=== PATIENT | male | born 1950 | race Caucasian/White ===

== ENCOUNTER 2016-07-20 16:54 | Observation (INO) | payer BC, OTHER ==
[2016-07-20 17:24] LABS: % IMMATURE GRANULYOCYTES 0.3 % (0.0-1.1); ABSOLUTE IMMATURE GRANULOCYTES 0.02 10^3/uL (0.00-0.10); ADD DIFF? NO; ADD MORPH? NO; ADD SCAN? NO; ATYPICAL LYMPHOCYTE FLAG 10 (0-99); FRAGMENT RBC FLAG 0 (0-99); HEMATOCRIT 42.6 % (40.0-51.0); HEMOGLOBIN 14.9 g/dL (13.7-17.5); LEFT SHIFT FLG 0 (0-99); LIPEMIA HEMOLYSIS FLAG 90 (0-99); MEAN CELL HEMOGLOBIN 30.7 pg (27.9-34.1); MEAN CELL VOLUME 87.8 fL (81.5-99.8); MEAN PLATELET VOLUME 9.6 fL (8.7-11.7); PLATELET CLUMPS FLAG 0 (0-99); PLATELET COUNT 204 10^3/uL (150-400); RED BLOOD CELL COUNT 4.85 10^6/uL (4.40-6.38); RED CELL DISTRIBUTION WIDTH 12.7 % (11.5-15.2)
--- NOTE | 2016-07-20 17:25 | UCPHY ---
H & P Patient Type: Established HPI/ROS: HPI Forgetfulness. 66-year-old male by private vehicle with his . His reports that they were having sexual intercourse at 4:30 p.m.. After this his stated that the patient could not remember what they did earlier this morning. She then asked him questions such as [place] tissue work and he could not remember this. He has no complaint of chest pain or palpitations. No headache. He denies any focal loss of sensation or weakness in his extremities. He has no other complaints and his states that his memory has now improved. ROS: Constitutional: No fever, no chills. As above. Eyes: No discharge. No changes in vision. ENT: No sore throat. No nasal congestion or rhinorrhea. Respiratory: No cough. No shortness of breath. Cardiac: No chest pain, no palpitations. Gastrointestinal: No abdominal pain, no vomiting, no diarrhea. Genitourinary: No hematuria. No dysuria or increased frequency with urination. Musculoskeletal: No back pain. No neck pain. No myalgias or arthralgias. Skin: No rashes. Neurological: No headache. No focal weakness or altered sensation. Past medical history: No significant past medical history. He is not on any prescription medications. Social history: Nonsmoker. Here with his . No alcohol. Physical Exam: General Appearance: Alert, no distress. This patient is slow to respond to questioning but answers appropriately. This patient appears well-hydrated and well-nourished. Eyes: Pupils equal and round no pallor or injection. No lid edema, erythema or injection. No photophobia. No nystagmus. Respiratory: There are no retractions, lungs are clear to auscultation with good air movement bilaterally. Cardiovascular: Regular rate and rhythm. No murmur. Gastrointestinal: Abdomen is soft and nontender, no masses, bowel sounds normal. No focal tenderness at McBurney's point. No Peters sign. Neurological: Motor sensory function is normal. Cranial nerves are normal. Cerebellar function normal. Gait is normal. Skin: Warm and dry, no rashes. Musculoskeletal: Neck is supple and nontender. No pain on flexion of the neck. Extremities are symmetrical. All joints range without pain or impingement. Psychiatric: No agitation. No depression. Database: EKG: Imaging: Procedures: Emergency department course: IV established in triage at urgent care. After my evaluation, I explained to him and his that I felt he should go to the emergency department for a more detailed workup which will include an MRI of his brain as well as carotid artery Dopplers. His memory has been improving since coming to the urgent care. He does not represent a stroke alert and is not a TPA candidate at this time. His and him are in agreement to go to the emergency department. She will take him immediately. 5:20 p.m., I spoke with on-duty emergency physician Dr. Lunsford at [facility] emergency department. He is expecting the patient. I have placed orders for TIA workup. Patient left Urgent Care with his in stable and improved condition. Differential Diagnosis: The differential diagnosis on this patient includes but is not limited to transient global amnesia, TIA, CVA, toxic metabolic issue. This represents a partial list of diagnoses considered. These considerations are based on history , physical exam, past history, reassessment and diagnostic testing. Smoking Status: Never smoked Constitutional: Initial Vital Signs Temperature (C) 37.2 C 07/20/16 17:00 Heart Rate 78 07/20/16 17:00 Respiratory Rate 16 07/20/16 17:00 Blood Pressure 158/87 H 07/20/16 17:00 O2 Sat (%) 94 07/20/16 17:00 O2 Delivery Mode Room Air Allergies/Adverse Reactions: Penicillins Allergy (Mild, Verified 07/20/16 17:09) Hives Home Medications: Medication Instructions Recorded Acetaminophen [Tylenol ES 500 mg 1,000 mg PO BID PRN 07/20/16 (*)] Ascorbic Acid [Vitamin C 500 mg 500 mg PO DAILY 07/20/16 (*)] Cholecalciferol Vit D3 [Vitamin D3] 400 units PO DAILY 07/20/16 Fexofenadine HCl [Sherley Allergy] 60 mg PO DAILY 07/20/16 Gluc Garcia/Chondro Garcia A/Vit C/Mn 1 each PO TID 07/20/16 [Glucosamine 1,500 Complex Cap] Herbals/Supplements -Info Only 1 ea PO DAILY 07/20/16 Ibuprofen [Motrin (*)] 600 mg PO BID PRN 07/20/16 [place]-3 Fatty Acids [Fish Oil 1000 1,000 mg PO BID@18 07/20/16 mg (*)] Omeprazole [Prilosec 20 mg] 20 mg PO DAILY 07/20/16 Sodium Cl Nasal [[place] (*)] 1 spray EACHNARE DAILY PRN 07/20/16 Tears/Dextran 70/Hypromellose 1 drop EACHEYE Q2 PRN 07/20/16 [Natural Balance Tears (*)] Vitamin B Complex [B Complex] 1 each PO DAILY 07/20/16 Zinc Gluconate [Zinc Chelated 50mg 50 mg PO DAILY8 07/20/16 (*)] Medical Decision Making - Data Points Laboratory Results: Laboratory Results 07/20/16 17:00 07/20/16 17:00 Medications Given: Discontinued Medications Acetaminophen (Tylenol) 650 mg PO Q4HRS PRN PRN Reason: Pain, Mild/Fever, Can Take PO Stop: 01/16/17 20:09 Last Admin: 07/21/16 08:07 Dose: 650 mg Cetirizine HCl (Zyrtec) 10 mg PO DAILY CHIP Stop: 01/17/17 08:59 Last Admin: 07/21/16 08:08 Dose: Not Given Miscellaneous Medication (Gluc Garcia/Chondro Garcia A/Vit C/Mn [Glucosamine 1,500 Complex Cap]) 1 each PO TID CHIP Stop: 01/16/17 21:59 Last Admin: 07/21/16 12:10 Dose: Not Given Pantoprazole Sodium (Protonix) 40 mg PO DAILY CHIP Stop: 01/17/17 08:59 Last Admin: 07/21/16 08:08 Dose: 40 mg Vitamin B Complex (Vitamin B Complex) 1 ea PO DAILY CHIP Stop: 01/17/17 08:59 Last Admin: 07/21/16 08:08 Dose: 1 ea Departure - Departure Disposition: [facility] Inpatient Acute Clinical Impression: Acute memory impairment Condition: Good - PQRS PQRS Measurement: Not applicable.
[2016-07-20 17:30] LABS: ANION GAP 14 mEq/L (8-16); CARBON DIOXIDE 24 mEq/l (22-31); CHLORIDE 104 mEq/L (97-110); CREATININE 0.7 mg/dL (0.7-1.3); GLOMERULAR FILTRATION RATE > 60; GLUCOSE 114 mg/dL (70-100); POTASSIUM 3.8 mEq/L (3.5-5.2); SODIUM 142 mEq/L (134-144)
--- NOTE | 2016-07-20 19:23 | EDPHY ---
H & P Time Seen by Provider: 07/20/16 18:21 HPI/ROS: CHIEF COMPLAINT: Memory loss HISTORY OF PRESENT ILLNESS: The patient is a 66-year-old male who presents to the emergency department as a transfer from [facility]. At 4:30 a.m. today he was having sexual intercourse when he developed forgetfulness. He is having difficulty remembering what happened earlier in the day. He was seen at urgent care. He was found to have no focal neurologic deficits other than his memory loss. He was sent to [facility] for MRI and ultrasound imaging. In the emergency department the patient has no specific complaints. However, the patient's states he still is having forgetfulness. Patient has difficulty recalling events earlier today were going to urgent care. Patient has no headache or neck pain. No recent trauma or fall. No weakness or numbness. No recent illnesses. The patient has not been to a doctor in 10-15 years. REVIEW OF SYSTEMS: My complete review of systems is negative except as mentioned in the HPI. Past Medical/Surgical History: Denies Past surgical history: Noncontributory Social history: The patient is . Does not use alcohol. He does not smoke Smoking Status: Never smoked Physical Exam: GENERAL: Well-appearing, in no acute distress, alert. HEENT: Eyes normal to inspection, normal pharynx, no signs of dehydration. NECK: No thyromegaly, no lymphadenopathy, supple. RESPIRATORY: Clear to auscultation bilaterally, no rales, rhonchi or wheezing. CVS: Regular rate and rhythm, no rubs, murmurs, or gallops. ABDOMEN: Soft, nontender, nondistended, no organomegaly. BACK: Normal to inspection, no CVA tenderness. SKIN: Normal color, no rash, warm, dry. No pallor. EXTREMITIES: No pedal edema, no calf tenderness, no Homans sign or cords, no joint swelling. NEURO/PSYCH: Higher functions: Alert and Oriented x2. The patient has difficulty with short -term memory. He is able to name 1 of 3 short-term memory items. Normal speech and cognition. Normal mood and affect. Cranial nerves: Normal as tested. Cerebellar: Normal as tested. Good finger to nose, good [id number], normal gait. Peripheral exam: Normal motor exam. Normal sensation. Normal reflexes. Constitutional: Initial Vital Signs Temperature (C) 37.2 C 07/20/16 17:00 Heart Rate 78 07/20/16 17:00 Respiratory Rate 16 07/20/16 17:00 Blood Pressure 158/87 H 07/20/16 17:00 O2 Sat (%) 94 07/20/16 17:00 O2 Delivery Mode Room Air Allergies/Adverse Reactions: Penicillins Allergy (Mild, Verified 07/20/16 17:09) Hives Home Medications: Medication Instructions Recorded Miscellaneous Medical Supply [NO 1 ea MISC AD 11/12/12 HOME MEDS] Medical Decision Making ED Course/Re-evaluation: In the emergency department I discussed the plan with the patient and his . On my exam he had no focal neurologic deficits other than his memory loss. Carotid ultrasound. Please refer the dictated report by Dr. Chilo Sanchez. The patient has no acute occlusion noted. 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 MRI of the brain: Please refer the dictated report by Dr. Chilo Sanchez. No acute disease noted. I paged Neurology discussed the case. I discussed case with Dr. Damon from Neurology. He recommended admission for observation. I subsequently spoke with Dr. Powers who will admit the patient. Differential Diagnosis: My differential includes but is not limited to transient global amnesia, amnesia , ischemic CVA, hemorrhagic CVA, dissection, aneurysm, electrolyte abnormality, sugar abnormality - Data Points Laboratory Results: Laboratory Results 07/20/16 17:00 07/20/16 17:00 07/20/16 07/20/16 17:00 17:00 WBC 7.98 10^3/uL 10^3/uL (3.80-9.50) RBC 4.85 10^6/uL 10^6/uL (4.40-6.38) Hgb 14.9 g/dL g/dL (13.7-17.5) Hct 42.6 % % (40.0-51.0) MCV 87.8 fL fL (81.5-99.8) MCH 30.7 pg pg (27.9-34.1) MCHC 35.0 g/dL g/dL (32.4-36.7) RDW 12.7 % % (11.5-15.2) Plt Count 204 10^3/uL 10^3/uL (150-400) MPV 9.6 fL fL (8.7-11.7) Neut % (Auto) 58.0 % % (39.3-74.2) Lymph % (Auto) 32.6 % % (15.0-45.0) [place] % (Auto) 6.6 % % (4.5-13.0) Eos % (Auto) 2.1 % % (0.6-7.6) Baso % (Auto) 0.4 % % (0.3-1.7) Nucleat RBC Rel Count 0.0 % % (0.0-0.2) Absolute Neuts (auto) 4.63 10^3/uL 10^3/uL (1.70-6.50) Absolute Lymphs (auto) 2.60 10^3/uL 10^3/uL (1.00-3.00) Absolute Monos (auto) 0.53 10^3/uL 10^3/uL (0.30-0.80) Absolute Eos (auto) 0.17 10^3/uL 10^3/uL (0.03-0.40) Absolute Basos (auto) 0.03 10^3/uL 10^3/uL (0.02-0.10) Absolute Nucleated RBC 0.00 10^3/uL 10^3/uL (0-0.01) Immature Gran % 0.3 % % (0.0-1.1) Immature Gran # 0.02 10^3/uL 10^3/uL (0.00-0.10) Sodium 142 mEq/L mEq/L (134-144) Potassium 3.8 mEq/L mEq/L (3.5-5.2) Chloride 104 mEq/L mEq/L (97-110) Carbon Dioxide 24 mEq/l mEq/l (22-31) Anion Gap 14 mEq/L mEq/L (8-16) BUN 18 mg/dL mg/dL (7-23) Creatinine 0.7 mg/dL mg/dL (0.7-1.3) Estimated GFR > 60 Glucose 114 mg/dL H mg/dL (70-100) Calcium 9.0 mg/dL mg/dL (8.5-10.4) Departure - Departure Disposition: [facility] Acute Clinical Impression: Acute memory impairment Condition: Good Instructions: Transient Global Amnesia (ED) Additional Instructions: Go directly to the [facility] Emergency Department. Appropriate diagnostic testing and workup will be done when he arrive there. Referrals: NONE *PRIMARY CARE P,. [Primary Care Provider] - As per Instructions
[2016-07-20] MEDS ORDERED: ONDANSETRON DISINTEGRATING 4 MG TAB PO PRN (20:10)
--- NOTE | 2016-07-20 20:50 | GHP ---
[f rep st] HISTORY AND PHYSICAL DATE OF ADMISSION: 07/20/2016 CHIEF COMPLAINT: Amnesia. HISTORY OF PRESENT ILLNESS: This is a 66-year-old otherwise healthy man who presents with amnesia. It started about half an hour after having sex with his . He was feeling somewhat confused, to ld his that he was feeling somewhat spacey as they were getting ready for a green party. He asked he r multiple times if she had remembered to feed the dog. He has never had this before. It was not a ssociated with any focal weakness or numbness. As I am talking to him, he is already improving and is remembering more events from his recent past. PAST MEDICAL/SURGICAL HISTORY: Allergies. MEDICATIONS: Sherley and ibuprofen. ALLERGIES: Penicillin. FAMILY HISTORY: His mother had cancer. SOCIAL HISTORY: He lives with his . He drinks about 2 beers a week. He does not smoke. REVIEW OF SYSTEMS: A 10-point review of systems is conducted and is negative except per history of present illness. PHYSICAL EXAMINATION: VITAL SIGNS: Blood pressure 136/81, heart rate 76, respiration rate 16, satu rating 94% on room air, temperature 36.9. GENERAL: The patient is a pleasant man who is sitting in the chair comfortably in no acute distress. HEENT: Shows him to be normocephalic, atraumatic. CA RDIOVASCULAR: Shows regular rate and rhythm. No murmurs, rubs, or gallops. PULMONARY: Lungs ivett r to auscultation bilaterally. ABDOMEN: Soft, nontender, nondistended. SKIN: No rash. : No F oley. NEUROLOGIC: Shows him to be alert and oriented times almost 3. He had a little bit of diffi culty remembering the date. Otherwise motor and sensation are intact. Cranial nerves 2-[address] PSYCHIATRIC: Shows normal mood and affect. LABORATORY: Basic metabolic panel is normal. CBC is normal. DATA: 1. I discussed this with Dr. Lunsford in the emergency department, will admit for observation. 2. Carotid ultrasound shows no hemodynamically significant stenoses. 3. Brain MRI shows it is normal. IMPRESSION/PLAN: A 66-year-old male with transient global amnesia. Transient global amnesia: Will admit for observation. Dr. Damon will see him in the morning. He is already improving. Neurologic exam and neuro imaging reveals nothing additional. This is a h igh-risk diagnosis; however, with an acute neurologic change. /[id number]/MODL
[2016-07-20] MEDS ORDERED: SODIUM CL NASAL 45 ML BTL EACHNARE PRN (21:17)
[2016-07-20] MEDS ORDERED: ACETAMINOPHEN 500 MG TAB PO PRN (21:17)
[2016-07-20] MEDS ORDERED: TEARS/DEXTRAN 70/HYPROMELLOSE 15 ML OPHT.BTL EACHEYE PRN (21:17)
[2016-07-20] MEDS: VIT C PO SCH (22:25)
[2016-07-20] MEDS: CHONDRO SU A PO SCH (22:25)
[2016-07-20] MEDS: GLUC SU PO SCH (22:25)
[2016-07-20] MEDS: [UNRECOGNIZED DRUG - OTHER] PO SCH (22:25)
[2016-07-20] MEDS: ACETAMINOPHEN 325 MG TAB PO PRN (22:27)
[2016-07-21 07:59] VITALS: BP 134/82; PULSE 72; RESP 14; TEMP 98.4; O2SAT 96
[2016-07-21] MEDS: ACETAMINOPHEN 325 MG TAB PO PRN (08:07)
--- NOTE | 2016-07-21 08:20 | HOSPPROG ---
Hospitalist Progress Note Assessment/Plan: Patient is a 66 y/o male who had some confusion without any focal weakenss or numbness. Today is my first encounter with the patient/ chart reviewed. #. Transient global amnesia -MRI without any findings/normal -carotid Doppler show no flow limiting stenosis -Dr Damon to see -patient has never had an episode like this before #. Plan : will await for neurology's input. Then likely dc soon. Gave him a PCP for f/u care. He has not seen a doctor for many years. Subjective: Mans[place] is feeling well/ has good recollection of events from yesterday. Objective: Vital Signs Temp Pulse Resp BP Pulse Ox 36.9 C 72 14 134/82 H 96 07/21/16 07:58 07/21/16 07:58 07/21/16 07:58 07/21/16 07:58 07/21/16 07:58 07/20/16 07/21/16 07/22/16 05:59 05:59 05:59 Intake Total 200 Output Total 200 Balance 0 - Physical Exam Constitutional: no apparent distress, appears nourished, not in pain Eyes: PERRL Ears, Nose, Mouth, Throat: hearing normal Cardiovascular: regular rate and rhythym Respiratory: no respiratory distress Gastrointestinal: normoactive bowel sounds Skin: warm, mottled Musculoskeletal: full muscle strength, no muscle tenderness Neurologic: AAOx3, CN II-XII Intact, No numbness, No pronator drift, No facial droop Psychiatric: interacting appropriately, flat affect ICD10 Worksheet Patient Problems: Problems Problem Status Onset Acute memory impairment Acute
[2016-07-21] MEDS ORDERED: VITAMIN B COMPLEX 1 EA CAP/TAB PO SCH (09:00)
[2016-07-21] MEDS ORDERED: PANTOPRAZOLE SODIUM 40 MG TAB PO SCH (09:00)
[2016-07-21] MEDS ORDERED: CETIRIZINE 10 MG TAB PO SCH (09:00)
--- NOTE | 2016-07-21 11:37 | GDS ---
[f rep st] DISCHARGE SUMMARY DISCHARGE DIAGNOSIS: Transient global amnesia. HISTORY OF PRESENT ILLNESS: The patient is a 66-year-old man who has no significant past medical history. He presented with having an episode of amnesia. It started approximately half an hour after having intercourse with his . He was feeling confused and told his he was feeling very spacey. He asked her multiple times if she remembered to feed the dog and he has never done this before. His was in the process of driving to a democrat, but was very concerned because he was confused. He was brought to the emergency room for further evaluation. He had a brain MRI that did not show any acute bleed or possible stroke. It was noted to be normal. His carotid ultrasound showed no hemodynamically significant stenosis. He was seen and evaluated by Dr. Vasile Damon this morning who felt it was safe for him to go. This was likely transient. He will be discharged home. In addition, the patient has not been seen by a primary care physician in multiple years. He has been given the name of a physician for followup care. CONDITION AT DISCHARGE: Stable. Blood pressure is 134/82, heart rate 70, respiratory rate is 14, O2 sat on room air is 96%, temperature 36.9 Celsius. DISCHARGE MEDICATIONS: Please see the EMR. DISCHARGE INSTRUCTIONS: 1. If he has any stroke-like symptoms, return to the ER. 2. He needs to get followup care with a primary care provider. He has been given a name of a physician for this. /[id number]/MODL MTDD
--- NOTE | 2016-07-21 11:52 | GCON ---
[f rep st] CONSULTATION NEUROLOGIC CONSULTATION HISTORY OF PRESENT ILLNESS: The patient is a 66-year-old gentleman who I am asked to see in [facility] consultation regarding an episode of memory loss. He experienced the acute onset yesterday of s ome mild confusion, in which he kept repeating himself and could not maintain memory of recent event s. There were anterograde and retrograde amnestic qualities to the memory loss, according to his wi fe. About 30 minutes earlier they had sex and were going to go to a libertarian. They went to the event, and he could communicate, but everything seemed slower, and his ability to remember short-term deta ils was diminished. He was seemingly confused about relatively simple things to do like getting out his identification. They stayed briefly at the libertarian, and then decided to come to the hospital for evaluation, where he was seen and evaluated and was seemingly improving over several hours. He was admitted for observation. He has never had this before. He has had no chronic medical problems of significance and does not r egularly go to a physician. He has a baseline flat affect, according to his , but that is nothi ng new for him. I asked if he has any changes in movements or increased slowness of activity or eulogio nges in speech, and she says no. REVIEW OF SYSTEMS: A 10-point review of systems was completed and unremarkable except for that note d above. He did not have any headache or dizziness. No nausea or vomiting. No focal numbness or weakness. Symptoms again seem to be now fully resolved without any specific intervention other than resting. He feels essentially back to himself. There were no clear-cut precipitating or alleviating factors other than perhaps a relationship to having had sexual activity 30 minutes earlier. FAMILY HISTORY: Noncontributory other than mother having cancer. ALLERGIES: Penicillin. MEDICATIONS: He takes Sherley and ibuprofen intermittently. SOCIAL HISTORY: He has a few beers per week. He was not drinking around the time of this. He live s with his . 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 He regularly r ides his bicycle. No smoking. PHYSICAL EXAMINATION: GENERAL: An overweight, but well-developed man in no acute distress. HEENT: Eyes are clear. NECK: Supple with no bruits or masses. CARDIAC: Regular rate and rhythm with n o murmur. LUNGS: Clear. EXTREMITIES: No cyanosis or edema. Pulses 2+. VITAL SIGNS: The blood pressure is 134/82, pulse of 72, respirations 14, temperature 36.9. NEUROLO GIC: Awake, alert, attentive, with a flat affect and decreased facial expression, but will intermit tently laugh appropriately when something funny is stated. He is oriented to person, place, time, a nd general situation. He has decreased memory for the recent events, but otherwise communicating ef fectively with a good general fund of knowledge. He does not express any bizarre thoughts or halluc inations. Pupils 3 mm and reactive. Unremarkable fundi. No visual field loss. Extraocular moveme nts are intact. Normal facial sensation and strength. Palate elevates symmetrically. Tongue protr udes midline. Hearing is preserved. No weakness of head turning or shoulder shrug. Motor exam: N ormal muscle bulk and tone with 5/5 strength and no abnormal movements. Sensation is preserved for temperature and light touch. No ataxia in the upper extremities. Normal gait. Reflexes 1+. DIAGNOSTIC STUDIES: I have reviewed the diagnostic studies that include a carotid ultrasound showin g no hemodynamically significant stenoses. Brain MRI is unremarkable. Laboratory studies show norm al CBC and electrolytes. IMPRESSION: The patient has experienced an episode of probable transient global amnesia without any other likely differential considerations. We had a detailed discussion about the prognosis, which is good for this condition, with approximately 10% chance of recurrence. He does not need any addit ional diagnostic studies or additional followup, but was given my contact information should issues arise and is free to contact me at any time. He was advised that he should start seeing a primary c are provider as well. /[id number]/MODL
[2016-07-21] MEDS ORDERED: OMEGA-3 FATTY ACIDS 1,000 MG CAP PO SCH (12:00)
[2016-07-21] MEDS: GLUC SU PO SCH (12:10)
[2016-07-21] MEDS: VIT C PO SCH (12:10)
[2016-07-21] MEDS: CHONDRO SU A PO SCH (12:10)
[2016-07-21] MEDS: [UNRECOGNIZED DRUG - OTHER] PO SCH (12:10)
== END 2016-07-21 12:27 | disposition home or self-care (01) ==
LOC: CED 16:54 → F3N 20:42
PROVIDERS: ADMIT Student in an Organized Health Care Education/Training Program; ATTEND Hospitalist
DX: G45.4 Transient global amnesia (principal)
CPT/HCPCS: 70551; 93880; 99203; G0378; 80048-PO; 85025-PO; G0463-PO